=== PATIENT | male | born 1985 | race Caucasian/White ===

== ENCOUNTER 2017-02-15 06:22 | Emergency (ER) | payer SELFPAY | END 2017-02-15 07:12 | disposition home or self-care (01) | LOC: D.ER 06:22 | DX: S01.512A Laceration without foreign body of oral cavity, initial encounter (principal); Y04.2XXA Assault by strike against or bumped into by another person, initial encounter; Y93.89 Activity, other specified; Y92.89 Other specified places as the place of occurrence of the external cause; F17.200 Nicotine dependence, unspecified, uncomplicated ==